=== PATIENT | female | born 1965 | race Caucasian/White ===

== ENCOUNTER 2021-12-04 06:29 | Day surgery (SDC) | payer MEDICAID ==
[~2021-12-04] VITALS: Ht 160 cm; Wt 63.5 kg
[2021-12-04] MEDS ORDERED: SIMETHICONE 40 MG/0.6 ML ML ONE (07:06)
[2021-12-04] MEDS ORDERED: fentaNYL CITRATE/PF 100 MCG/2 ML AMP ONE (07:06)
[2021-12-04] MEDS ORDERED: MIDAZOLAM HCL 5 MG/5 ML VIAL ONE (07:06)
[2021-12-04] MEDS ORDERED: MEPERIDINE 100 MG INJ. 100 MG/ML VIAL ONE (07:09)
[2021-12-04 09:32] VITALS: BP_SYST 105
== END 2021-12-04 09:07 | disposition home or self-care (01) ==
LOC: SDS 06:29 → SMU 06:29 → SDS 09:07
PROVIDERS: ATTEND Internal Medicine Gastroenterology
DX: Z12.11 Encounter for screening for malignant neoplasm of colon (principal); D12.3 Benign neoplasm of transverse colon; K57.30 Diverticulosis of large intestine without perforation or abscess without bleeding; K64.9 Unspecified hemorrhoids; Z79.899 Other long term (current) drug therapy; Z20.822 Contact with and (suspected) exposure to COVID-19
CPT/HCPCS: 36415 ×2; 45385; 87426; 88305; 99152; 99153; G0378; J2175; J2250; U0003; 87635-QW; J3010